=== PATIENT | male | born 1970 | race Caucasian/White ===

== ENCOUNTER 2016-09-17 01:26 | Inpatient (IN) | payer OTHER ==
--- NOTE | ~2016-09-17 | HP ---
Unit #: [id number] #: [id number] Patient: MERCED YOUNG [id number] [place] [address] [id number] I MR#: [id number] NAME: MERCED YOUNG. ROOM: 75 Age: 46 Sex: M Admission Date: 09/17/2016 : 1970 Attending Physician: Raghav Winters M.D. Admitting Physician: Raghav Winters M.D. Primary Care Physician: Primary Care Physician No HISTORY AND PHYSICAL HISTORY OF PRESENT ILLNESS Merced is a 46 year old admitted to [facility] because of his continued polysubstance abuse which includes methamphetamine and heroin. PAST MEDICAL HISTORY 1. Long history of illicit substance abuse. 2. Coronary artery disease. a. History of [place]. b. Status post angioplasty with stents. 3. Hyperlipidemia. 4. High blood pressure. 5. Obesity. 6. Obstructive sleep apnea. PAST SURGICAL HISTORY As above. ALLERGIES No known drug allergies. SOCIAL HISTORY He smokes 1 pack per day. Drinks alcohol rarely. Admits to a long history of poly-illicit substance abuse. FAMILY HISTORY Medically noncontributory. REVIEW OF SYSTEMS CONSTITUTIONAL: No fever or chills. HEENT: Denies any sore throat, ear pain or runny nose. CARDIOVASCULAR: Denies chest pain, irregular heart rhythm or palpitations. CHEST: Denies shortness of breath or cough. No hemoptysis. GASTROINTESTINAL: Denies nausea, vomiting, diarrhea or chronic constipation. ENDOCRINE: Denies history of increased thirst or urination. No recent significant weight loss or gain. GENITOURINARY: Denies dysuria, frequency, or hematuria. SKIN: Denies any rashes. HEMATOLOGIC: Denies history of increased bleeding or bruising. MUSCULOSKELETAL: Denies any hot, swollen joints. No generalized muscle pain. NEUROLOGIC: Denies problems with vision or speech. No frequent, severe headaches. No numbness, tingling or weakness in any extremities. Denies Unit #: [id number] #: [id number] Patient: MERCED YOUNG loss of bladder or bowel control. CURRENT MEDICATIONS 1. Lipitor 80 mg q.h.s. 2. Desyrel 50 mg q.h.s. 3. Cozaar 25 mg daily. 4. Toprol XL 50 mg daily. 5. Wellbutrin XL 150 mg daily. 6. Zoloft 100 mg daily. 7. Motrin 600 mg q. 6 hours p.r.n. 8. Milk of Magnesia p.r.n. 9. Maalox p.r.n. 10. Tylenol p.r.n. PHYSICAL EXAMINATION GENERAL: Alert, well-nourished, in no apparent distress. VITAL SIGNS: Blood pressure 140/90, heart rate 80, respirations 16, temperature 98.6. WEIGHT: 260. HEIGHT: 5 feet 9 inches. SKIN: Warm and dry without rash or lesion. HEENT: Normocephalic. TMs not viewed. Oral and nasal passages clear. Conjunctivae clear. PERRLA. EOMs intact. NECK: Supple without lymphadenopathy or thyromegaly. HEART: Regular rate and rhythm without murmur. LUNGS: Clear. ABDOMEN: Soft, nontender. : Not done. EXTREMITIES: No evidence of cyanosis, clubbing or edema. Moves all without focal deficit. NEUROLOGICAL: Grossly within normal limits. Cranial Nerves: II: Visual de are intact. III, IV AND : Extraocular movements are intact. Pupils are equal, round and reactive to light. V: Facial sensation is grossly normal. VII: Facial movements and expression are normal. VIII: Auditory acuity grossly intact. IX, X: Uvula is midline. Phonation is normal. XI: Patient shrugs shoulders and turns head normally. XII: Tongue protrudes in the midline. Sensory and Motor Function: Sensory and motor sensation is grossly normal. Motor: moves all extremities well. Coordination: Gait is normal. Deep Tendon Reflexes: Intact. IMPRESSION Psychiatric admission. RECOMMENDATIONS PSYCHIATRIC: Per psychiatrist. MEDICAL: See no contraindications to participate in facility's activities. MEDICAL PROGNOSIS Good. MEDICAL CONDITION Stable. Unit #: [id number] #: [id number] Patient: HECTORMERCED Aaron Dictated by... Evonne Xiong P.A.-C. for Alanna Chung/jake TD: 09/17/2016 19:57 JOB #: [id number] HISTORY AND PHYSICAL Page 1 of 1 X Evonne Xiong X HISTORY AND PHYSICAL
--- NOTE | ~2016-09-17 | PA ---
Unit #: [id number] #: [id number] Patient: MERCED THAKKAR [id number] [place] [address] [id number] I MR#: [id number] NAME: MERCED THAKKAR. ROOM: P175 Age: 46 Sex: M Admission Date: 09/17/2016 : 1970 Date of Assessment: 09/17/2016 Attending Physician: Raghav Winters M.D. Admitting Physician: Raghav Winters M.D. Primary Care Physician: Primary Care Physician No PSYCHIATRIC ASSESSMENT DATE OF SERVICE 09/17/2016. INFORMANTS The patient reliable; [facility], reliable. CHIEF COMPLAINT Substance use and suicidal ideation. HISTORY OF PRESENT ILLNESS Merced Thakkar is a 46-year-old man with one previous admission to this facility, who reported that he relapsed into amphetamine use while staying at a sober living house, prompted by another resident. He had increasing hopelessness and helplessness and developed suicidal ideation. He could not contract for safety and was admitted for stabilization. PAST PSYCHIATRIC HISTORY This is Mr. Thakkar's second admission to [facility] and he reports multiple episodes of treatment over the years for chemical dependence in [place], [place]; [place], [place]; [place], [place]; and [place], [place]. FAMILY PSYCHIATRIC HISTORY None reported. SOCIAL HISTORY The patient denied a history of childhood abuse or neglect. He is a heterosexual man with no current partner who is currently living in a sober living facility. He is a high-school graduate who is currently unemployed. PAST MEDICAL HISTORY Hypertension and coronary artery disease. MEDICATIONS Metoprolol and aspirin. ALLERGIES No known medication allergies. SUBSTANCE USE HISTORY As noted previously. Unit #: [id number] #: [id number] Patient: MERCED THAKKAR MENTAL STATUS EXAMINATION Merced presented as a mildly disheveled man who appeared his stated age. He was cooperative with the examination. He stood 5 feet 9 inches tall, weighing 260 pounds. Vital signs; temperature 97.8, pulse 107, respirations 20, blood pressure 139/91. His speech was spontaneous and easily understood. His musculoskeletal examination was calm. His mood was depressed and irritable with a congruent affect. He was alert and fully oriented. His memory and concentration were intact. His thought processes were logical with no active psychosis. He reported suicidal ideation with multiple plans and could not contract for safety. Insight and judgment were fair. Fund of knowledge and abstraction were fair. ASSETS AND LIABILITIES The patient is familiar with local resources and presents voluntarily for treatment. Liabilities include recent relapse, erratic housing and employment. ADMITTING DIAGNOSES AXIS I: Major depression, F33.2; amphetamine abuse; history of opioid abuse; history of alcohol abuse. AXIS II: No diagnosis. AXIS III: Hypertension and coronary artery disease. AXIS IV: AXIS V: PSYCHIATRIC PLAN The patient was admitted and placed on suicide precautions. Home medications will be restarted. He will enroll in dual diagnosis groups and activities. Treatment goals are resolution of suicidal ideation, improvement in insight, and improvement in coping skills. DISCHARGE PLANNING Follow up with community mental health and local [facility] resources. ESTIMATED LENGTH OF STAY 5 days. Dictated by... Raghav Winters M.D. HARRY/alexia TD: 09/17/2016 11:20 JOB #: [id number] PSYCHIATRIC ASSESSMENT Page 1 of 1 X Raghav Winters MD X PSYCHIATRIC ASSESSMENT
[2016-09-19 10:28] LABS: AMPHETAMINE POS (NEG); BARBITURATES NEG (NEG); BENZODIAZEPINES NEG (NEG); COCAINE NEG (NEG); MARIJUANA NEG (NEG); OPIATES NEG (NEG); TRICYCLIC ANTIDEPRESSANTS NEG (NEG); U METHADONE NEG (NEG)
== END 2016-09-20 12:51 | disposition home or self-care (01) | DRG 885 ==
LOC: P1E 01:26 → P2S 20:51
PROVIDERS: Psychiatry & Neurology Psychiatry
DX: F33.9 Major depressive disorder, recurrent, unspecified (principal); I10 Essential (primary) hypertension; G47.33 Obstructive sleep apnea (adult) (pediatric); E66.9 Obesity, unspecified; I25.10 Atherosclerotic heart disease of native coronary artery without angina pectoris; F17.210 Nicotine dependence, cigarettes, uncomplicated
CPT/HCPCS: 80307

== ENCOUNTER 2016-11-11 15:00 | Inpatient (IN) | payer OTHER ==
--- NOTE | ~2016-11-11 | DS ---
Unit #: [id number] #: [id number] Patient: MERCED THAKKAR [id number] [facility] [address] [place] [address] [id number] I MR#: [id number] NAME: MERCED THAKKAR. ROOM: P256 Age: 46 Sex: M Admission Date: 11/11/2016 : 1970 Discharge Date: 11/15/2016 Attending Physician: Raghav Winters M.D. Primary Care Physician: Primary Care Physician No DISCHARGE SUMMARY REASON FOR ADMISSION Mr. Thakkar is a 38-year-old man with previous admissions to our facility, who reported noncompliance with his medications and increasing suicidal ideation. He was admitted for stabilization. LABORATORY DATA Please see hospital chart. HOSPITAL COURSE Merced was readmitted and placed on his previous medications. He participated appropriately in unit groups and activities with no further suicidal ideation, intent, or statements throughout the hospitalization. On the date of discharge, he contracted for safety in the outpatient setting once again. DISCHARGE DIAGNOSES AXIS I: Major depressive disorder, recurrent; history of polysubstance dependence. AXIS II: No diagnosis. AXIS III: Hypertension, high cholesterol, history of pain. AXIS IV: AXIS V: DISCHARGE INSTRUCTIONS The patient to follow up with [facility]. DISCHARGE MEDICATIONS Zoloft 100 mg daily for depression, Wellbutrin XL 150 mg daily for depression, trazodone 50 mg at bedtime as needed for insomnia. Primary care medicines were Cozaar 25 mg daily for hypertension, Lipitor 80 mg at bedtime for high cholesterol, Toprol-XL 50 mg daily for hypertension, enteric-coated aspirin 325 mg daily for anticoagulation, Flonase 2 sprays daily for nasal congestion, Motrin 800 mg every 8 hours as needed for pain. CONDITION AT DISCHARGE Improved. PROGNOSIS Good. DIET AND ACTIVITY Ad neelam. Unit #: [id number] #: [id number] Patient: MERCED THAKKAR Dictated by... Raghav Winters M.D. [facility]/alexia TD: 12/04/2016 12:05 JOB #: [id number] DISCHARGE SUMMARY Page 1 of 1 X Raghav Winters MD X DISCHARGE SUMMARY
--- NOTE | ~2016-11-11 | DS ---
Unit #: [id number] #: [id number] Patient: MERCED THAKKAR [id number] [facility] [address] [place] [address] [id number] I MR#: [id number] NAME: MERCED THAKKAR. ROOM: P256 Age: 46 Sex: M Admission Date: 11/11/2016 : 1970 Discharge Date: 11/15/2016 Attending Physician: Raghav Winters M.D. Primary Care Physician: Primary Care Physician No DISCHARGE SUMMARY REASON FOR ADMISSION Mr. Thakkar is a 46-year-old man with multiple admissions to this facility, who reports he has been off his medicine for about 3 weeks. He was unable to contract for safety and was admitted for stabilization. DIAGNOSTIC STUDIES LABORATORY RESULTS: Please see hospital chart. HOSPITAL COURSE The patient was admitted and placed on suicide precautions. Home medications were restarted and he tolerated these with no evidence of significant adverse side effects. He had no substance use or detox and participated appropriately in unit groups and activities. On the date of discharge, he was able to contract for safety in the outpatient setting. DISCHARGE DIAGNOSES AXIS I: Major depression, history of amphetamine abuse, history of alcohol abuse. AXIS II: No diagnosis. AXIS III: Hypertension and coronary artery disease. AXIS IV: AXIS V: DISCHARGE INSTRUCTIONS Follow up with [facility]. DISCHARGE MEDICATIONS Zoloft 50 mg daily for depression, Wellbutrin XL 150 mg daily for depression, trazodone 50 mg at bedtime as needed for insomnia. Primary care medicines were Motrin 800 mg every 8 hours as needed for pain, Cozaar 25 mg daily for hypertension, Lipitor 80 mg daily at bedtime for high cholesterol, Toprol-XL 50 mg daily for hypertension, enteric-coated aspirin 325 mg daily for CAD, and Flonase 2 sprays each nostril for nasal congestion. CONDITION AT DISCHARGE Improved. PROGNOSIS Fair. DIET AND ACTIVITY Unit #: [id number] #: [id number] Patient: MERCED THAKKAR Per primary care doctor. Dictated by... Raghav Winters M.D. [facility]/alexia TD: 12/06/2016 06:28 JOB #: [id number] DISCHARGE SUMMARY Page 1 of 1 X Raghav Winters MD DISCHARGE SUMMARY
--- NOTE | ~2016-11-11 | HP ---
Unit #: [id number] #: [id number] Patient: MERCED YOUNG [id number] [place] [address] [id number] I MR#: [id number] NAME: MERCED YOUNG. ROOM: P256 Age: 46 Sex: M Admission Date: 11/11/2016 : 1970 Attending Physician: Raghav Winters M.D. Admitting Physician: Raghav Winters M.D. Primary Care Physician: Primary Care Physician No HISTORY AND PHYSICAL HISTORY OF PRESENT ILLNESS Hubert is a 46 year old admitted to [address] [place] [address] with depression and increased anxiety. PAST MEDICAL HISTORY 1. Long history of illicit substance abuse 2. Coronary artery disease a. History of [place] b. Status post angioplasty with stents. c. Hyperlipidemia. d. High blood pressure. e. Obesity. f. PATEL. PAST SURGICAL HISTORY As above. ALLERGIES No known drug allergies. SOCIAL HISTORY Smokes one pack per day. Drinks alcohol rarely. Admits to a long history of poly illicit substance abuse. FAMILY HISTORY Medically noncontributory. REVIEW OF SYSTEMS CONSTITUTIONAL: No fever or chills. HEENT: Denies any sore throat, ear pain or runny nose. CARDIOVASCULAR: Denies chest pain, irregular heart rhythm or palpitations. CHEST: Denies shortness of breath or cough. No hemoptysis. GASTROINTESTINAL: Denies nausea, vomiting, diarrhea or chronic constipation. ENDOCRINE: Denies history of increased thirst or urination. No recent significant weight loss or gain. GENITOURINARY: Denies dysuria, frequency, or hematuria. SKIN: Denies any rashes. HEMATOLOGIC: Denies history of increased bleeding or bruising. MUSCULOSKELETAL: Denies any hot, swollen joints. No generalized muscle pain. NEUROLOGIC: Denies problems with vision or speech. No frequent, severe Unit #: [id number] #: [id number] Patient: MERCED YUONG headaches. No numbness, tingling or weakness in any extremities. Denies loss of bladder or bowel control. CURRENT MEDICATIONS 1. Enteric coated aspirin 325 mg q day 2. Toprol XL 50 mg q day 3. Cozaar 25 mg q day 4. Desyrel 50 mg q day 5. Lipitor 80 mg q h.s. 6. Milk of Magnesia p.r.n. 7. Maalox p.r.n. 8. Tylenol p.r.n. 9. Ibuprofen p.r.n. 10. Wellbutrin 150 mg 11. Zoloft 100 mg daily PHYSICAL EXAMINATION GENERAL: Alert, well-nourished, in no apparent distress. VITAL SIGNS: Blood pressure 70/96, heart rate 78, respirations 16, temperature 98.6. WEIGHT: 250 pounds. SKIN: Warm and dry without rash or lesion. HEENT: Normocephalic. TMs not viewed. Oral and nasal passages clear. Conjunctivae clear. Pupils equal, round and reactive to light and accommodation. Extraocular movements intact. NECK: Supple without lymphadenopathy or thyromegaly. HEART: Regular rate and rhythm without murmur. LUNGS: Clear. ABDOMEN: Soft, nontender. : Not done. EXTREMITIES: No evidence of cyanosis, clubbing or edema. Moves all extremities without focal deficit. NEUROLOGICAL: Grossly within normal limits. Cranial Nerves: II: Visual de are intact. III, IV AND : Extraocular movements are intact. Pupils are equal, round and reactive to light. V: Facial sensation is grossly normal. VII: Facial movements and expression are normal. VIII: Auditory acuity grossly intact. IX, X: Uvula is midline. Phonation is normal. XI: Patient shrugs shoulders and turns head normally. XII: Tongue protrudes in the midline. Sensory and Motor Function: Sensory and motor sensation is grossly normal. Motor: moves all extremities well. Coordination: Gait is normal. Deep Tendon Reflexes: Intact. IMPRESSION Psychiatric admission RECOMMENDATIONS PSYCHIATRIC: Per psychiatrist. MEDICAL: I see no contraindications to participating in facility's activities. MEDICAL PROGNOSIS Good. MEDICAL CONDITION Stable. Unit #: [id number] #: [id number] Patient: MERCED YOUNG Dictated by... Evonne Xiong P.A.-C. for Alanna Chung/mally TD: 11/12/2016 07:01 JOB #: [id number] HISTORY AND PHYSICAL Page 1 of 1 X Evonne Xiong X HISTORY AND PHYSICAL
--- NOTE | ~2016-11-11 | PN ---
Unit #: [id number] #: [id number] Patient: MERCED YOUNG [id number] [facility] [address] [place] [address] [id number] I MR#: [id number] NAME: MERCED YOUNG. ROOM: P256 Age: 46 Sex: M Admission Date: 11/11/2016 : 1970 Attending Physician: Raghav Winters M.D. Admitting Physician: Raghav Winters M.D. Primary Care Physician: Primary Care Physician Simin THAO PROGRESS NOTES DATE 11/14/2016 DISCUSSION Merced continues to be mildly irritable this morning and complains of significant anxiety which is not in evidence during my initial evaluation. He continues to insist that he is supposed to on a "third medication" which appears to be Neurontin but we cannot confirm this. He is also upset with his social science teacher feeling like the social science teacher is not being helpful with his demands. He is irritable in mood with a congruent affect. He was alert and fully oriented. Memory and concentration were fair. Thought processes are logical with no psychosis. ASSESSMENT Major depression. PLAN Continue current treatment plan and work toward long-term placement. Dictated by... Alanna Fitzgerald/jose TD: 11/15/2016 06:56 JOB #: [id number] KEESHA ARRIAGA NOTES Page 1 of 1 X Raghav Winters MD X PROGRESS NOTE
--- NOTE | ~2016-11-11 | PN ---
Unit #: [id number] #: [id number] Patient: MERCED YOUNG [id number] [facility] [address] [place] [address] [id number] I MR#: [id number] NAME: MERCED YOUNG. ROOM: P256 Age: 46 Sex: M Admission Date: 11/11/2016 : 1970 Attending Physician: Raghav Winters M.D. Admitting Physician: Raghav Winters M.D. Primary Care Physician: Primary Care Physician Simin THAO PROGRESS NOTES DATE 11/13/2016 DISCUSSION Merced continues to have a depressed mood although his affect is a little brighter today. He is alert and fully oriented. His memory and concentration are fair to good. His thought processes are goal directed with no active psychosis. He is working on long-term placement after this facility. He also states that he is supposed to be on "a third medicine" but we have not been able to locate this through [facility] at this point. ASSESSMENT Major depression. PLAN Continue current medications and treatment plan. Dictated by... Raghav Winters M.D. [facility]/jake TD: 11/14/2016 17:59 JOB #: [id number] KEESHA PROGRESS NOTES Page 1 of 1 X Raghav Winters MD PROGRESS NOTE
--- NOTE | ~2016-11-11 | PA ---
Unit #: [id number] #: [id number] Patient: MERCED THAKKAR [id number] [facility] [address] [place] [address] [id number] MR#: [id number] NAME: MERCED THAKKAR. ROOM: P256 Age: 46 Sex: M Admission Date: 11/11/2016 : 1970 Date of Assessment: 11/12/2016 Attending Physician: Raghav Winters M.D. Admitting Physician: Raghav Winters M.D. Primary Care Physician: Primary Care Physician No PSYCHIATRIC ASSESSMENT INFORMANTS Patient, reliable; [facility], reliable. CHIEF COMPLAINT "off my medications". HISTORY OF PRESENT ILLNESS Merced Thakkar is a 46-year-old man with previous admissions to this facility, who reports that he has been off his psych medications for about 3 weeks due to inability to access him to the [facility]. He felt increasing hopelessness, helplessness, said I hate my life and I hate myself and had suicidal ideation with a plan to walk into traffic. He has been recently clean from substances. He was admitted for protection and re-initiation of treatment. PAST PSYCHIATRIC HISTORY The patient's last admission here was in August of 2016. He has also had multiple admissions in [place], [place], [place], [place], [place], [place], and [place], [place]. FAMILY PSYCHIATRIC HISTORY None reported. SOCIAL HISTORY The patient denied a history of childhood abuse or neglect. He is a heterosexual man with no current partner, who is living in a sober living facility. He is a high-school graduate, who is unemployed. PAST MEDICAL HISTORY Significant for hypertension and coronary artery disease. MEDICATIONS Metoprolol and aspirin. ALLERGIES No known medication allergies. SUBSTANCE USE HISTORY As noted above. MENTAL STATUS EXAMINATION The patient presented as a neatly dressed and groomed man, who appeared his stated age. He was cooperative with the examination. His speech was Unit #: [id number] #: [id number] Patient: MERCED THAKKAR spontaneous and easily understood. Musculoskeletal examination was calm. His mood was depressed with a congruent affect. He was alert and fully oriented. Memory and concentration were intact. Thought processes were logical with no psychosis. He reported suicidal ideation with a plan to step into the traffic and could not contract for safety. Insight and judgment were intact. Fund of knowledge and abstraction were intact. ASSETS AND LIABILITIES The patient knows local resources and presents voluntarily for treatment and is compliant with treatment when it is available. Liabilities include lack of access to health care. ADMITTING DIAGNOSES AXIS I: Major depression, history of amphetamine abuse, and history of alcohol abuse. AXIS II: No diagnosis. AXIS III: Hypertension and coronary artery disease. AXIS IV: AXIS V: PSYCHIATRIC PLAN Merced was admitted and placed on suicide precautions. His home medications will be restarted including previous psychiatric medications and we will monitor for response. He will enroll in psychotherapy groups, and activities. TREATMENT GOALS Resolution of SI, improvement in insight, and improvement in coping skills. DISCHARGE PLANNING Follow up with [facility]. ESTIMATED LENGTH OF STAY 5 days. Dictated by... Raghav Winters M.D. HARRY/alexia TD: 11/12/2016 18:21 JOB #: [id number] PSYCHIATRIC ASSESSMENT Page 1 of 1 X Raghav Winters MD X PSYCHIATRIC ASSESSMENT
[2016-11-12 09:50] LABS: BASOPHIL# 0.1 X10e3 (0-0.3); BASOPHIL% 0.7 % (0-2.5); EOSINOPHIL# 0.4 X10e3 (0-0.7); EOSINOPHIL% 5.1 % (0.0-7.0); HEMATOCRIT 45.2 % (38.0-50.0); HEMOGLOBIN 14.9 gm/dL (13.0-16.0); LYMPHOCYTE# 2.8 X10e3 (1.0-3.5); LYMPHOCYTE% 35.6 % (17.0-45.0); MEAN CELL VOLUME 92.9 FL (83-96); MEAN CORPUSCULAR HEMOGLOBIN 30.6 PG (28-34); MEAN CORPUSCULAR HGB CONC 32.9 g/dL (30-36); MEAN PLATELET VOLUME 9.3 FL (6.5-11.5); MONOCYTE# 0.9 X10e3 (0-1.0); MONOCYTE% 12.2 % (3.0-12.0); NEUTROPHIL# 3.6 X10e3 (1.5-7.1); NEUTROPHIL% 46.4 % (40-75); PLATELET COUNT 225 X10e3 (140-420); RED BLOOD COUNT 4.87 X10e (3.90-5.60); RED CELL DISTRIBUTION WIDTH 13.8 % (11.0-15.5); WHITE BLOOD COUNT 7.8 X10e3 (4.0-10.5)
[2016-11-12 09:54] LABS: DIFF IND NO
[2016-11-12 10:12] LABS: ALBUMIN SERUM 3.4 g/dL (3.5-5.0); BILIRUBIN,TOTAL 0.7 mg/dL (0.2-2.0); BUN/CREATININE RATIO 26.66; CALCIUM SERUM 8.8 mg/dL (8.4-10.2); CREATININE SERUM 0.6 mg/dL (0.6-1.4); GLOM FILT RATE Estimated 118.9 mL/min (>60); POTASSIUM 4.4 mmol/L (3.5-5.1); PROTEIN TOTAL SERUM 5.8 g/dL (6.0-8.3)
[2016-11-13 10:11] LABS: AMPHETAMINE NEG (NEG); BARBITURATES NEG (NEG); BENZODIAZEPINES NEG (NEG); COCAINE NEG (NEG); MARIJUANA NEG (NEG); OPIATES NEG (NEG); TRICYCLIC ANTIDEPRESSANTS NEG (NEG); U METHADONE NEG (NEG)
== END 2016-11-15 14:30 | DRG 885 ==
LOC: P2L 15:55
PROVIDERS: Psychiatry & Neurology Psychiatry
DX: F33.9 Major depressive disorder, recurrent, unspecified (principal); I10 Essential (primary) hypertension; E78.5 Hyperlipidemia, unspecified; E66.9 Obesity, unspecified; G47.33 Obstructive sleep apnea (adult) (pediatric); F17.210 Nicotine dependence, cigarettes, uncomplicated
CPT/HCPCS: 80053; 80307; 85025